=== PATIENT | male | born 1935 | race Caucasian/White ===

== ENCOUNTER 2020-08-10 07:20 | Inpatient (IN) ==
[2020-08-10 07:52] LABS: Basophils % 0.7 %; Eosinophils # 0.1 K/mcL (0.0-0.6); Eosinophils % 1.5 %; Hematocrit 24.1 % (37.5-50.1); Hemoglobin 7.5 g/dL (12.9-16.9); Immature Granulocytes % 0.3 % (0-4); Lymphocytes # 1.5 K/mcL (0.6-4.6); Lymphocytes % 25.2 %; Mean Corpuscular HGB Conc 31.1 g/dL (31.6-35.5); Mean Corpuscular Hemoglobin 27.1 pg (28.0-33.3); Mean Platelet Volume 9.6 fL (9.4-12.4); Monocytes # 0.6 K/mcL (0.0-1.3); Neutrophils # 3.8 K/mcL (1.6-8.9); Platelet Count 190 K/mcL (140-400); Red Blood Count 2.77 M/mcL (4.19-5.50); Red Cell Distribution Width 13.8 % (11.5-14.5); Segmented Neutrophils % 62.3 %; White Blood Count 6.1 K/mcL (4.3-11.1)
[2020-08-10 08:00] LABS: INR 1.1
[2020-08-10 08:19] LABS: Alanine Aminotransferase 14 Units/L (7-52); Albumin 3.6 g/dL (3.5-5.7); Albumin/Globulin Ratio 1.8 (1.1-2.2); Alkaline Phosphatase 44 Units/L (34-104); Aspartate Amino Transferase 14 Units/L (13-39); BUN/Creatinine Ratio 40 (6-26); Bilirubin,Direct 0.1 mg/dL (0.0-0.2); Bilirubin,Indirect 0.4 mg/dL (0.0-1.0); Bilirubin,Total 0.5 mg/dL (0.3-1.0); Blood Urea Nitrogen 32 mg/dL (8-23); Calcium 8.5 mg/dL (8.6-10.3); Carbon Dioxide 22 mEq/L (23-29); Chloride 109 mEq/L (98-107); Glucose 159 mg/dL (70-105); Osmolality,Calculated 292 (280-300); Potassium 3.9 mEq/L (3.5-5.1); Sodium 136 mEq/L (136-145); Total Protein 5.6 g/dL (6.4-8.9); Troponin I < 0.03 ng/mL (< 0.04); eGFR For African Americans > 60 (> 60); eGFR For Non-African Americans > 60 (> 60)
[2020-08-10] MEDS ORDERED: Isovue-370 500 ML BOTTLE IVP ONE (08:32)
[2020-08-10] MEDS ORDERED: 0.9 % Sodium Chloride 250 ML ONE ×3 (09:06→16:44)
[2020-08-10] MEDS ORDERED: Pantoprazole 40 MG VIAL IVP ONE (09:38)
[2020-08-10] MEDS ORDERED: Acetaminophen 325 MG TABLET PO PRN (10:36)
[2020-08-10] MEDS ORDERED: Melatonin 3 MG TABLET PO PRN (10:36)
[2020-08-10] MEDS ORDERED: SODIUM CHLORIDE/NAHCO3/KCL/PEG 4,000 ML SOLN.RECON PO ONE (10:36)
[2020-08-10] MEDS ORDERED: Ondansetron 4 MG/2 ML VIAL IVP PRN (10:36)
[2020-08-10] MEDS: Pantoprazole 40 MG VIAL IVP SCH (17:11)
[2020-08-10 17:12] LABS: Hematocrit 31.8 % (37.5-50.1)
[2020-08-10 17:17] LABS: Hemoglobin 10.2 g/dL (12.9-16.9)
[2020-08-10 17:27] LABS: Calcium 8.2 mg/dL (8.6-10.3)
[2020-08-10] MEDS ORDERED: 0.9 % Sodium Chloride 1,000 ML IVC SCH (18:00)
[2020-08-10] MEDS ORDERED: *HR* Midazolam HCl 2 MG/2 ML VIAL ONE (18:08)
[2020-08-10] MEDS ORDERED: *HR* Propofol 200 MG/20 ML VIAL IVP ONE ×2 (18:08→18:09)
[2020-08-10] MEDS ORDERED: flumazeniL 0.5 MG/5 ML VIAL IVP ONE (19:14)
[2020-08-11] MEDS: Pantoprazole 40 MG VIAL IVP SCH ×2 (05:40→17:34)
[2020-08-11 06:36] LABS: Hematocrit 27.5 % (37.5-50.1); Mean Corpuscular HGB Conc 32.7 g/dL (31.6-35.5); Mean Corpuscular Hemoglobin 29.2 pg (28.0-33.3); Mean Corpuscular Volume 89.3 fL (83.0-100.0); Platelet Count 138 K/mcL (140-400); Red Blood Count 3.08 M/mcL (4.19-5.50); Red Cell Distribution Width 15.3 % (11.5-14.5); White Blood Count 6.2 K/mcL (4.3-11.1)
[2020-08-11 06:53] LABS: BUN/Creatinine Ratio 23 (6-26); Blood Urea Nitrogen 18 mg/dL (8-23); Calcium 8.1 mg/dL (8.6-10.3); Carbon Dioxide 21 mEq/L (23-29); Chloride 112 mEq/L (98-107); Glucose 104 mg/dL (70-105); Magnesium 1.8 mg/dL (1.6-2.6); Osmolality,Calculated 290 (280-300); Potassium 3.5 mEq/L (3.5-5.1); Sodium 139 mEq/L (136-145); eGFR For African Americans > 60 (> 60); eGFR For Non-African Americans > 60 (> 60)
[2020-08-11] MEDS ORDERED: Calcium Gluconate 1gm/50mL 1 GM/50 ML BAG IVPB ONE (07:11)
[2020-08-11 08:40] LABS: Carcinoembryonic Antigen 1.6 ng/mL (Less than 5.0)
[2020-08-11] MEDS ORDERED: Aspirin 81 MG TAB.CHEW PO SCH (09:00)
[2020-08-11] MEDS ORDERED: Ondansetron 4 MG/2 ML VIAL ONE (13:50)
[2020-08-11] MEDS ORDERED: Dexamethasone 4 MG/ML VIAL ONE (13:50)
[2020-08-11] MEDS ORDERED: *HR* Propofol 200 MG/20 ML VIAL IVP ONE (13:50)
[2020-08-11] MEDS ORDERED: *HR* Rocuronium Bromide 50 MG/5 ML VIAL ONE (13:50)
[2020-08-11] MEDS ORDERED: Lidocaine -MPF 4% 5 ML AMPUL ONE (13:50)
[2020-08-11] MEDS ORDERED: Lidocaine -MPF 2% 2 ML VIAL ONE (13:50)
[2020-08-11] MEDS ORDERED: *HR* HYDROmorphone PF 0.5 MG/0.5 ML SYRINGE IVP PRN ×2 (14:31→17:07)
[2020-08-11] MEDS ORDERED: *HR* Vasopressin 20 UNIT/ML VIAL ONE (14:31)
[2020-08-11] MEDS ORDERED: *HR* FentaNYL (PF) 100 MCG/2 ML VIAL ONE (14:41)
[2020-08-11] MEDS ORDERED: *HR* HYDROMORPHONE 2 MG/ML VIAL ONE (14:42)
[2020-08-11] MEDS ORDERED: CefOXitin 2,000 MG VIAL ONE (15:11)
[2020-08-11] MEDS ORDERED: Sugammadex Sodium 200 MG/2 ML VIAL IV ONE (15:47)
[2020-08-11] MEDS ORDERED: *HR* OxyCODONE Immed Rel 5 MG TABLET PO PRN (16:00)
[2020-08-11] MEDS ORDERED: 0.9 % Sodium Chloride 500 ML ONE ×2 (16:30→22:50)
[2020-08-11] MEDS ORDERED: Ondansetron 4 MG/2 ML VIAL IVP PRN (17:07)
[2020-08-11] MEDS ORDERED: Melatonin 3 MG TABLET PO PRN (17:07)
[2020-08-11] MEDS ORDERED: 0.9 % Sodium Chloride 1,000 ML IVC SCH (17:07)
[2020-08-11] MEDS: Acetaminophen IV 1,000 MG/100 ML BAG IVPB SCH ×2 (17:33→17:42)
[2020-08-11 17:53] LABS: Hematocrit 27.7 % (37.5-50.1); Hemoglobin 9.1 g/dL (12.9-16.9); Mean Corpuscular HGB Conc 32.9 g/dL (31.6-35.5); Mean Corpuscular Hemoglobin 29.2 pg (28.0-33.3); Mean Corpuscular Volume 88.8 fL (83.0-100.0); Platelet Count 165 K/mcL (140-400); Red Blood Count 3.12 M/mcL (4.19-5.50); Red Cell Distribution Width 15.2 % (11.5-14.5)
[2020-08-11 17:54] LABS: White Blood Count 15.8 K/mcL (4.3-11.1)
[2020-08-11] MEDS ORDERED: Acetaminophen IV 1,000 MG/100 ML BAG IVPB SCH (18:00)
[2020-08-11] MEDS: *HR* OxyCODONE Immed Rel 5 MG TABLET PO PRN (21:05)
[2020-08-11 21:31] LABS: Hematocrit 25.7 % (37.5-50.1)
[2020-08-11] MEDS ORDERED: 0.9 % Sodium Chloride 1,000 ML IVC ONE (21:35)
[2020-08-12] MEDS ORDERED: Calcium Gluconate 1gm/50mL 1 GM/50 ML BAG IVPB ONE (00:25)
[2020-08-12] MEDS ORDERED: 0.9 % Sodium Chloride 1,000 ML IVC SCH (00:38)
[2020-08-12] MEDS ORDERED: 0.9 % Sodium Chloride 1,000 ML ONE (00:41)
[2020-08-12 00:44] LABS: Hematocrit 25.1 % (37.5-50.1); Hemoglobin 7.8 g/dL (12.9-16.9); Mean Corpuscular HGB Conc 31.1 g/dL (31.6-35.5); Mean Corpuscular Hemoglobin 29.4 pg (28.0-33.3); Mean Corpuscular Volume 94.7 fL (83.0-100.0); Mean Platelet Volume 10.1 fL (9.4-12.4); Platelet Count 189 K/mcL (140-400); Red Blood Count 2.65 M/mcL (4.19-5.50); Red Cell Distribution Width 15.2 % (11.5-14.5); White Blood Count 20.1 K/mcL (4.3-11.1)
[2020-08-12 01:00] LABS: BUN/Creatinine Ratio 23 (6-26); Blood Urea Nitrogen 19 mg/dL (8-23); Calcium 7.2 mg/dL (8.6-10.3); Carbon Dioxide 11 mEq/L (23-29); Chloride 112 mEq/L (98-107); Glucose 232 mg/dL (70-105); Magnesium 1.5 mg/dL (1.6-2.6); Osmolality,Calculated 298 (280-300); Potassium 3.9 mEq/L (3.5-5.1); Sodium 139 mEq/L (136-145); eGFR For African Americans > 60 (> 60); eGFR For Non-African Americans > 60 (> 60)
[2020-08-12] MEDS: Acetaminophen IV 1,000 MG/100 ML BAG IVPB SCH ×4 (01:00→19:02)
[2020-08-12 04:48] LABS: Hematocrit 31.9 % (37.5-50.1)
[2020-08-12 04:49] LABS: Hemoglobin 10.1 g/dL (12.9-16.9)
[2020-08-12] MEDS: Pantoprazole 40 MG VIAL IVP SCH ×2 (05:34→16:46)
[2020-08-12] MEDS: Aspirin 81 MG TAB.CHEW PO SCH (07:18)
[2020-08-12] MEDS: Piperacillin/Tazobactam 3.375 GM in 0.9 % Sodium Chloride Mini Bag 100 ML IVPB SCH ×2 (07:18→16:47)
[2020-08-12] MEDS: Sodium Bicarbonate 150 MEQ in Water for inj. (sterile) 1,000 ML IVC SCH ×2 (09:25→19:59)
[2020-08-12] MEDS: *HR* OxyCODONE Immed Rel 5 MG TABLET PO PRN (09:41)
[2020-08-12 12:38] LABS: Hematocrit 27.4 % (37.5-50.1); Hemoglobin 8.9 g/dL (12.9-16.9)
[2020-08-12 17:48] LABS: Hematocrit 24.7 % (37.5-50.1); Hemoglobin 8.1 g/dL (12.9-16.9)
[2020-08-13] MEDS: Acetaminophen IV 1,000 MG/100 ML BAG IVPB SCH ×4 (00:09→18:16)
[2020-08-13] MEDS: Piperacillin/Tazobactam 3.375 GM in 0.9 % Sodium Chloride Mini Bag 100 ML IVPB SCH ×3 (00:09→16:17)
[2020-08-13 02:15] LABS: % Iron Saturation 6 % (20-55); BUN/Creatinine Ratio 21 (6-26); Blood Urea Nitrogen 19 mg/dL (8-23); Calcium 7.3 mg/dL (8.6-10.3); Carbon Dioxide 25 mEq/L (23-29); Chloride 105 mEq/L (98-107); Glucose 161 mg/dL (70-105); Iron 11 mcg/dL (65-175); Osmolality,Calculated 288 (280-300); Potassium 3.4 mEq/L (3.5-5.1); Sodium 136 mEq/L (136-145); Transferrin 138 mg/dL (203-362); eGFR For African Americans > 60 (> 60); eGFR For Non-African Americans > 60 (> 60)
[2020-08-13 02:26] LABS: Ferritin 48 ng/mL (20-250)
[2020-08-13 04:56] LABS: Hematocrit 19.6 % (37.5-50.1); Hemoglobin 6.8 g/dL (12.9-16.9); Mean Corpuscular HGB Conc 34.7 g/dL (31.6-35.5); Mean Corpuscular Hemoglobin 29.2 pg (28.0-33.3); Mean Corpuscular Volume 84.1 fL (83.0-100.0); Mean Platelet Volume 9.5 fL (9.4-12.4); Platelet Count 107 K/mcL (140-400); Red Blood Count 2.33 M/mcL (4.19-5.50)
[2020-08-13] MEDS: Sodium Bicarbonate 150 MEQ in Water for inj. (sterile) 1,000 ML IVC SCH (06:15)
[2020-08-13] MEDS: Pantoprazole 40 MG VIAL IVP SCH (06:15)
[2020-08-13] MEDS ORDERED: Iron Sucrose Complex 400 MG in 0.9 % Sodium Chloride 250 ML IVPB ONE (07:22)
[2020-08-13] MEDS ORDERED: 0.9 % Sodium Chloride 250 ML ONE ×2 (07:52→17:39)
[2020-08-13] MEDS: Aspirin 81 MG TAB.CHEW PO SCH (08:05)
[2020-08-13 15:30] LABS: Hematocrit 23.4 % (37.5-50.1); Hemoglobin 7.9 g/dL (12.9-16.9)
[2020-08-13 21:06] LABS: Hematocrit 22.8 % (37.5-50.1); Hemoglobin 7.6 g/dL (12.9-16.9)
[2020-08-14] MEDS: Acetaminophen IV 1,000 MG/100 ML BAG IVPB SCH ×4 (00:25→18:15)
[2020-08-14] MEDS: Piperacillin/Tazobactam 3.375 GM in 0.9 % Sodium Chloride Mini Bag 100 ML IVPB SCH ×3 (00:26→15:43)
[2020-08-14 03:00] LABS: BUN/Creatinine Ratio 14 (6-26); Blood Urea Nitrogen 11 mg/dL (8-23); Calcium 7.5 mg/dL (8.6-10.3); Carbon Dioxide 28 mEq/L (23-29); Chloride 105 mEq/L (98-107); Glucose 130 mg/dL (70-105); Osmolality,Calculated 283 (280-300); Potassium 3.4 mEq/L (3.5-5.1); Sodium 136 mEq/L (136-145); eGFR For African Americans > 60 (> 60); eGFR For Non-African Americans > 60 (> 60)
[2020-08-14 03:09] LABS: Hematocrit 22.2 % (37.5-50.1); Hemoglobin 7.2 g/dL (12.9-16.9); Mean Corpuscular HGB Conc 32.4 g/dL (31.6-35.5); Mean Corpuscular Hemoglobin 28.7 pg (28.0-33.3); Mean Corpuscular Volume 88.4 fL (83.0-100.0); Mean Platelet Volume 10.4 fL (9.4-12.4); Platelet Count 117 K/mcL (140-400); Red Blood Count 2.51 M/mcL (4.19-5.50); Red Cell Distribution Width 15.9 % (11.5-14.5); White Blood Count 8.4 K/mcL (4.3-11.1)
[2020-08-14 06:38] LABS: Hematocrit 21.3 % (37.5-50.1)
[2020-08-14] MEDS: Aspirin 81 MG TAB.CHEW PO SCH (08:47)
[2020-08-14] MEDS ORDERED: 0.9 % Sodium Chloride 250 ML ONE ×2 (10:54→15:00)
[2020-08-14 20:24] LABS: Hematocrit 29.2 % (37.5-50.1); Hemoglobin 9.7 g/dL (12.9-16.9)
[2020-08-15] MEDS: Acetaminophen IV 1,000 MG/100 ML BAG IVPB SCH ×2 (00:19→06:34)
[2020-08-15] MEDS: Piperacillin/Tazobactam 3.375 GM in 0.9 % Sodium Chloride Mini Bag 100 ML IVPB SCH ×2 (00:47→09:28)
[2020-08-15 06:50] LABS: Basophils % 0.4 %; Eosinophils # 0.2 K/mcL (0.0-0.6); Eosinophils % 2.9 %; Hematocrit 31.7 % (37.5-50.1); Hemoglobin 10.5 g/dL (12.9-16.9); Lymphocytes # 1.2 K/mcL (0.6-4.6); Lymphocytes % 16.3 %; Mean Corpuscular HGB Conc 33.1 g/dL (31.6-35.5); Mean Corpuscular Hemoglobin 29.5 pg (28.0-33.3); Mean Platelet Volume 9.8 fL (9.4-12.4); Monocytes # 0.5 K/mcL (0.0-1.3); Monocytes % 6.6 %; Neutrophils # 5.3 K/mcL (1.6-8.9); Nucleated Red Blood Cells 0.4 /100 WBC (0); Platelet Count 129 K/mcL (140-400); Red Blood Count 3.56 M/mcL (4.19-5.50); Red Cell Distribution Width 15.4 % (11.5-14.5); Segmented Neutrophils % 72.8 %; White Blood Count 7.3 K/mcL (4.3-11.1)
[2020-08-15 07:40] LABS: BUN/Creatinine Ratio 13 (6-26); Blood Urea Nitrogen 10 mg/dL (8-23); Calcium 8.4 mg/dL (8.6-10.3); Carbon Dioxide 28 mEq/L (23-29); Chloride 108 mEq/L (98-107); Glucose 123 mg/dL (70-105); Magnesium 1.9 mg/dL (1.6-2.6); Osmolality,Calculated 288 (280-300); Potassium 4.2 mEq/L (3.5-5.1); Sodium 139 mEq/L (136-145); eGFR For African Americans > 60 (> 60); eGFR For Non-African Americans > 60 (> 60)
[2020-08-15] MEDS: Aspirin 81 MG TAB.CHEW PO SCH (09:28)
[2020-08-15 10:13] VITALS: BP 148/76
== END 2020-08-15 14:00 | disposition home health service (06) | DRG 330 ==
LOC: 3ANU 07:20 → EMEROOARM 07:20 → 3ANU 11:47 → SUATTDRO 15:10 → 2NNU 08-11 22:37 → 3NENU 08-13 10:25
PROVIDERS: ADMIT Internal Medicine; ATTEND Student in an Organized Health Care Education/Training Program
PROC: ENDOCBX (2020-08-10 17:40)